=== PATIENT | female | born 1980 | race American Indian/Alaskan Native ===

== ENCOUNTER 2021-09-29 19:39 | Emergency (ER) | payer SELFPAY ==
[2021-09-29 21:10] LABS: Basophils % (Auto) 0.2 % (0.0-1.8); Eosinophils % (Auto) 0.1 % (0.0-4.3); Hematocrit 24.8 % (30.3-42.9); Hemoglobin 7.9 gm/dl (10.1-14.3); Lymphocytes # (Auto) 1.2 K/mm3 (1.2-5.4); Lymphocytes % (Auto) 7.8 % (13.4-35.0); Mean Corpuscular HGB Conc 32 % (30-34); Mean Corpuscular Volume 90 fl (79-97); Monocytes # (Auto) 1.1 K/mm3 (0.0-0.8); Monocytes % (Auto) 7.1 % (0.0-7.3); Platelet Count 236 K/mm3 (140-440); Red Blood Count 2.76 M/mm3 (3.65-5.03)
[2021-09-29 21:25] LABS: Alanine Aminotransferase 16 units/L (7-56); Albumin 2.4 g/dL (3.9-5); Blood Urea Nitrogen 5 mg/dL (7-17); Calcium 8.8 mg/dL (8.4-10.2); Hemolysis Index 3; Red Cell Distribution Width 22.4 % (13.2-15.2)
[2021-09-29 21:30] LABS: BUN/Creatinine Ratio 25
[2021-09-29] MEDS ORDERED: MORPHINE 4 MG/1 ML INJ IV ONE (22:33)
[2021-09-29] MEDS ORDERED: SODIUM CHLORIDE 0.9% 1000 ML 1,000 ML IV ONE (22:33)
[2021-09-29] MEDS ORDERED: ONDANSETRON 4 MG/2 ML INJ IV ONE (22:33)
--- NOTE | 2021-09-29 23:41 | XRay Report ---
CHEST 1 VIEW 09/29/2021 10:34 PM INDICATION / CLINICAL INFORMATION: Abdominal Pain. COMPARISON: None available. FINDINGS: SUPPORT DEVICES: Right chest port has its tip over the distal superior vena cava. HEART / MEDIASTINUM: No significant abnormality. LUNGS / PLEURA: Diminished lung volumes. No significant infiltrate. No pneumothorax. ADDITIONAL FINDINGS: No significant additional findings. IMPRESSION: Diminished lung volumes. Signer Name: Ren Mayers MD Signed: 09/29/2021 11:36 PM Workstation Name: [id number]
[2021-09-30] MEDS ORDERED: MORPHINE 2 MG/1 ML INJ IV ONE ×2 (00:14→02:48)
--- NOTE | 2021-09-30 02:16 | Cat Scan Report ---
CT ABDOMEN AND PELVIS WITH CONTRAST INDICATION / CLINICAL INFORMATION: pain. TECHNIQUE: Axial CT images were obtained through the abdomen and pelvis after Omnipaque 300, 100 cc I V contrast. All CT scans at this location are performed using CT dose reduction for ALARA by means o f automated exposure control. COMPARISON: None available. FINDINGS: LOWER CHEST: Mild basilar atelectasis/scarring. LIVER: Heterogeneous lesions throughout the liver with relative sparing in the posterior segment of t he right hepatic lobe. Within the lateral segment of the left hepatic lobe is a low-density area tommy uring approximately 5.6 x 3.4 x 7.8 cm. There is internal air GALLBLADDER: No significant abnormality. BILE DUCTS: 2 stents. No biliary dilatation. PANCREAS: No significant abnormality. SPLEEN: No significant abnormality. ADRENALS: No significant abnormality. RIGHT KIDNEY / URETER: No significant abnormality. LEFT KIDNEY / URETER: No significant abnormality. STOMACH / SMALL BOWEL: No significant abnormality. COLON: No significant abnormality. APPENDIX: No significant abnormality. PERITONEUM: Scattered ascites which is overall mild in amount. No free air. No fluid collection. LYMPH NODES: No significant adenopathy. VASCULAR STRUCTURES: Varices noted upper abdomen. URINARY BLADDER: No significant abnormality. REPRODUCTIVE ORGANS: Fibroid uterus. ADDITIONAL FINDINGS: Diffuse soft tissue anasarca. SKELETAL SYSTEM: No significant abnormality. IMPRESSION: 1. Infiltrating tumor throughout the liver with relative sparing of the posterior segment of the righ t hepatic lobe. 2. Necrotic lesion versus abscess lateral segment left hepatic lobe. 3. Biliary stents in place without biliary dilatation. 4. Scattered ascites. 5. Soft tissue anasarca. Signer Name: Ren Mayers MD Signed: 09/30/2021 2:12 AM Workstation Name: [id number]
[2021-09-30] MEDS ORDERED: cefTRIAXone/NS 1 GM/50 ML 1 GM/50 ML BAG IV ONE (04:16)
--- NOTE | 2021-09-30 04:37 | Emergency Department Report ---
ED Abdominal Pain HPI - General Chief Complaint: Abdominal Pain Stated Complaint: PAIN MANAGEMENT Time Seen by Provider: 09/29/21 22:14 Source: patient Mode of arrival: Wheelchair Limitations: Physical Limitation - History of Present Illness Initial Comments: Pt reports Rt side abd pain onset this am. Pt has hx of liver cancer. Pt is aaox4, crying in triage. pt was in [facility] till last week where was treated , then she moved recently to [place] has an appt with oncology next 2 weeks , had severe pain with nausea nd vomiting -: Gradual, hour(s) Location: RUQ Radiation: none Severity scale (0 -10): 9 Quality: aching, dull Consistency: constant Improves With: nothing Worsens With: nothing - Related Data Allergies Allergy/AdvReac Type Severity Reaction Status Date / Time No Known Allergies Allergy Unverified 09/29/21 20:12 ED Review of Systems ROS: Stated complaint: PAIN MANAGEMENT Other details as noted in HPI Constitutional: denies: chills, fever Eyes: denies: eye pain, eye discharge, vision change ENT: denies: ear pain, throat pain Respiratory: denies: cough, shortness of breath, wheezing Cardiovascular: denies: chest pain, palpitations Endocrine: no symptoms reported Gastrointestinal: denies: abdominal pain, nausea, diarrhea Genitourinary: denies: urgency, dysuria, discharge Musculoskeletal: denies: back pain, joint swelling, arthralgia Skin: denies: rash, lesions Neurological: denies: headache, weakness, paresthesias Psychiatric: denies: anxiety, depression Hematological/Lymphatic: denies: easy bleeding, easy bruising ED Past Medical Hx - Past Medical History Previous Medical History?: Yes Hx Hypertension: No Hx CVA: No Hx Liver Disease: Yes Additional medical history: liver cancer - Surgical History Past Surgical History?: No ED Physical Exam - General Limitations: Physical Limitation General appearance: alert, in distress, cachectic - Head Head exam: Present: atraumatic, normocephalic - Eye Eye exam: Present: normal appearance - ENT ENT exam: Present: mucous membranes moist - Neck Neck exam: Present: normal inspection - Respiratory Respiratory exam: Present: normal lung sounds bilaterally. Absent: respiratory distress - Cardiovascular Cardiovascular Exam: Present: regular rate, normal rhythm. Absent: systolic murmur, diastolic murmur, rubs, gallop - GI/Abdominal GI/Abdominal exam: Present: distended, tenderness, normal bowel sounds, organomegaly. Absent: guarding, rebound - Extremities Exam Extremities exam: Present: normal inspection - Back Exam Back exam: Present: normal inspection - Neurological Exam Neurological exam: Present: alert, oriented X3 - Psychiatric Psychiatric exam: Present: normal affect, normal mood - Skin Skin exam: Present: warm, dry, intact, normal color. Absent: rash ED Course Vital Signs 09/29/21 09/29/21 09/30/21 20:13 22:32 00:30 Temperature 98.1 F Pulse Rate 114 H 70 Respiratory 18 18 Rate Blood Pressure 99/54 Blood Pressure 106/63 [Left] O2 Sat by Pulse 99 100 97 Oximetry 09/30/21 01:50 Temperature Pulse Rate 92 H Respiratory 18 Rate Blood Pressure Blood Pressure 105/68 [Left] O2 Sat by Pulse 100 Oximetry ED Medical Decision Making - Lab Data Result diagrams: 09/29/21 20:45 09/29/21 20:45 - Radiology Data Radiology results: image reviewed - Medical Decision Making work up showed : - Elevated wbc : cultures and abx given - CT scan shwoed liver abscess , spoke with dr Henley recommnded speaking to [place] - Spoke with [facility] , transferred to Medical ooncology, Dr Borja who accepted patient Critical Care Time: Yes Critical care time in (mins) excluding proc time.: 65 Critical care attestation.: If time is entered above; I have spent that time in minutes in the direct care of this critically ill patient, excluding procedure time. ED Disposition Clinical Impression: Abdominal pain, Liver abscess, Liver cancer Disposition: 51 HOSPICE/MEDICAL FACILITY Is pt being admited?: No Does the pt Need Aspirin: No Condition: Stable Instructions: Abdominal Pain (ED) Referrals: FE LINCOLN MD [Primary Care Provider] - 3-5 Days
[2021-09-30] MEDS ORDERED: MORPHINE 4 MG/1 ML INJ IV ONE (08:28)
[2021-09-30 09:04] VITALS: BP 104/64
== END 2021-09-30 09:00 | disposition hospice, inpatient (51) ==
LOC: ED 19:39
DX: R10.9 Unspecified abdominal pain (principal); K75.0 Abscess of liver; C22.9 Malignant neoplasm of liver, not specified as primary or secondary
CPT/HCPCS: 36415; 71045; 74177; 80053; 82150; 83690; 84703; 85025; 96361; 96365; 96375; 96376; 99291; J0696; J2270; J2405; J7030; Q9967; 99285; Q0162